=== PATIENT | male | born 1970 | race African-American/Black ===

== ENCOUNTER 2020-11-17 13:22 | Emergency (ER) | payer OTHER ==
[~2020-11-17] VITALS: Ht 175.3 cm; Wt 108.9 kg
--- NOTE | 2020-11-17 13:29 | Emergency Room Report ---
History of Present Illness General Source: Patient (Bandar Coffman MD) Present Illness HPI Patient is a 57-year-old male brought in by EMS after increased altered mental status. Patient had been found to have pinpoint pupils. He was noted to be unresponsive. Patient had been given Narcan 2 mg intranasally as well as intravenously with minimal improvement. Unknown past medical history. (Bandar Coffman MD) Allergies: Coded Allergies: UNABLE TO ASSESS (Unverified , 11/17/20) Patient History Reviewed Nursing Documentation: PMH: Agreed; PSxH: Agreed (Bandar Coffman MD) Review of Systems All Other Systems: negative except mentioned in HPI (Bandar Coffman MD) Physical Exam Sp02 EP Interpretation: reviewed, normal General Appearance: normal inspection, lethargic Head: atraumatic Eyes: bilateral eye other - pinpoint pupils ENT: normal ENT inspection, hearing grossly normal, normal voice Neck: normal inspection, full range of motion, supple, no bony tend Respiratory: normal inspection, lungs clear, normal breath sounds, no respiratory distress, no retraction, no wheezing Cardiovascular #1: regular rate, rhythm, no edema Gastrointestinal: normal inspection, normal bowel sounds, non tender, soft, no guarding, no hernia Genitourinary: no CVA tenderness Musculoskeletal: normal inspection, back normal, normal range of motion Neurologic: aphasia - pinpoint pupils, withdraws with painful stimuli Psychiatric: normal inspection, judgement/insight normal, mood/affect normal (Bandar Coffman MD) Vital Signs Date Time Temp Pulse Resp B/P (MAP) Pulse Ox O2 Delivery O2 Flow Rate FiO2 11/17/20 13:26 99.0 76 16 111/60 (77) 99 Room Air Sp02 EP Interpretation: reviewed, normal General Appearance: well appearing, no apparent distress, alert Head: normocephalic, atraumatic Eyes: bilateral eye PERRL, bilateral eye EOMI ENT: uvula midline, moist mucus membranes Neck: supple, thyroid normal, supple/symm/no masses Respiratory: lungs clear, no respiratory distress, no retraction, no accessory muscle use Cardiovascular #1: normal peripheral pulses, regular rate, rhythm, no edema, no gallop, no murmur Gastrointestinal: non tender, soft, no guarding, no rebound Musculoskeletal: normal inspection Neurologic: alert, oriented x3 Psychiatric: mood/affect normal Skin: no rash, warm/dry (Nimesh Flores MD) Medical Decision Making Diagnostic Impression: Primary Impression: Opioid overdose Qualified Codes: T40.2X1A - Poisoning by other opioids, accidental (unintentional), initial encounter ER Course Presented for altered mental status. Differential diagnosis include but was not limited to opiate overdose, CVA, alcohol intoxication among others. Patient was initially noted to be minimally responsive with pinpoint pupils. He was given Narcan. He did have some minimal improvement. patient was endorsed to Dr. Flores who will continue to monitor and further work-up as indicated. (Bandar Coffman MD) ER Course Reevaluation 6 PM patient back to baseline patient was able to give his information Patient was updated in the system, patient states he feels better patient counseled about the importance of not utilizing opioids will provide patient with a prescription for Narcan disposition home with return cautions follow-up with PCP (Nimesh Flores MD) Status: improved (Bandar Coffman MD) Disposition: HOME, SELF-CARE Condition: Stable Scripts Naloxone HCl (Narcan) 4 Mg [place] 4 MG NS ONCE for prn overdose, #4 SPRAY Prov: Nimesh Flores MD 11/17/20 Referrals: [facility] Patient Instructions: Opioid Use Disorder Additional Instructions: The patient was provided with discharge instructions, notified to follow-up with a primary care doctor and or specialist in the next 24-48 hours, and to return to the ED if they have worsening of their symptoms. Please note that this report is being documented using DRAGON technology. This can lead to erroneous entry secondary to incorrect interpretation by the dictating instrument. Bandar Coffman MD Nov 17, 2020 13:29 Nimesh Flores MD Nov 17, 2020 18:02
[2020-11-17] MEDS ORDERED: Naloxone 1mg/ml 2ml IVP ONE (13:30)
--- NOTE | 2020-11-17 13:50 | NUR ---
pt refuse to say his name. refuses IV and took off monitor for V/S. Pt also verbaly and fisical agressive to this RN and other personal, provider and transmitter engineer in charge notified.
[2020-11-17 14:00] VITALS: BP 111/60
[2020-11-17 14:09] LABS: APPEARANCE,URINE CLEAR; BILIRUBIN, URINE NEGATIVE (NEGATIVE); COLOR,URINE PALE YELLOW; GLUCOSE, URINE (UA) NEGATIVE (NEGATIVE); KETONES,URINE NEGATIVE (NEGATIVE); LEUKOCYTE ESTERASE ,URINE NEGATIVE (NEGATIVE); NITRITE,URINE NEGATIVE (NEGATIVE); PH,URINE 5 (4.5-8.0); PROTEIN,URINE NEGATIVE (NEGATIVE); UROBILINOGEN,URINE NORMAL MG/DL (0.0-1.0)
--- NOTE | 2020-11-17 14:22 | NUR ---
ED Nurse Note: pt arrived. pupils pinpoint, unresponsive. pt given 2 narcan DIRECTOR CAREER in route. pt given another 2 narvan IV. pt eventually responsive, maintaining airway. pt aggressive towards staff, yelling obscenities. pt trying to get out of bed despite being unstable on feet. 2 RN & audiovisual tech attempting to maintain pt safety. pt stating "you are beating me, you are trying to poke me. I dont want that. I refuse. take it out of my arm." pt unable to state his name, birthday, location, year or reason for being here. pt intermittently falling asleep mid sentence. unable to complete thoughts. pt rambling. intermittently fighting staff and becoming aggressive and then sleeping in bed. pt has patent iv. pt disoriented. pt on continuous monitor. in room with 2 RN near bedside. pt denies taking any drugs or medication. pt urinating on floor. pt argumentative with staff. MD aware. security precautions in place to prevent pt harm. bed in low position, siderails up, on continuous monitor.
--- NOTE | 2020-11-17 15:05 | Diagnostic Imaging Report ---
Indications: Altered mental status Technique: Spiral acquisitions obtained through the brain. Angled axial and coronal 5 x 5 mm slices were reconstructed. Total dose length product 1029 mGycm. CTDI vol(s) 53 mGy. Dose reduction achieved using automated exposure control Comparison: None. Findings: No acute intracranial hemorrhage or edema, mass effect, nor midline shift. Normal size ventricles and extra-axial CSF spaces. Normal vásquez-white differentiation. Intact calvarium. Visualized orbits are unremarkable. There is ethmoid sinus disease. The mastoids are clear. There is adenoid hypertrophy. The orbits are unremarkable Impression: Negative for acute intracranial bleed or mass effect Sinus disease Enlarged adenoids The CT scanner at [facility] is accredited by the [employer] and the scans are performed using protocols designed to limit radiation exposure to as low as reasonably achievable to attain images of sufficient resolution adequate for diagnostic evaluation.
[2020-11-17] MEDS ORDERED: NARCAN4 MG NS (18:02)
== END 2020-11-17 16:00 | disposition home or self-care (01) ==
LOC: EDBD 13:22 → EMR 14:41 → EDBD 14:41 → EMR 16:00
DX: T40.2X1A Poisoning by other opioids, accidental (unintentional), initial encounter (principal); Y92.9 Unspecified place or not applicable
CPT/HCPCS: 70450; 80307; 81003; 96374; Z7502; 99284